=== PATIENT | female | born 1945 | race Caucasian/White ===

== ENCOUNTER → 2017-02-01 | Outpatient (CLI) | payer OTHER ==
[2016-12-18 12:39] VITALS: BP 138/65
--- NOTE | 2017-02-01 14:24 | MG ---
HISTORY: 3 month follow up status post biopsy with clip placement Right breast digital diagnostic mammography with CAD. Comparison: Multiple priors dating back to September 19, 2011 FINDINGS: CC and MLO projections of the right breast were obtained. Scattered fibroglandular tissue is seen t o be present with interval placement of a new biopsy clip within a region of fat necrosis/oil cyst f ormation with an additional stable biopsy clip also noted. No new or developing dominant suspicious architectural distortion, mass or clustered microcalcifications can be observed to suggest malignan cy. No skin thickening or nipple retraction is appreciated. No pathological lymphadenopathy can b e identified. Benign-appearing calcifications are noted. IMPRESSION: NO RADIOGRAPHIC EVIDENCE OF MALIGNANCY. 2 biopsy clips are now noted within a region of fat necrosis/oil cyst formation. Correlation with pathologic concordance is recommended. ACR CATEGORY 2 - benign findings. Return to bilateral mammographic screening in October 2017. Diagnostic CAD was utilized and reviewed. * 0 (ZERO) - ASSESSMENT INCOMPLETE; ADDITIONAL IMAGING IS NEEDED. * 1/1 (ONE) - NEGATIVE. * 2/II (TWO) - BENIGN FINDINGS. * 3/III (THREE) - PROBABLY BENIGN FINDING; SHORT INTERVAL FOLLOW-UP SUGGESTED. * 4/IV (FOUR) - SUSPICIOUS ABNORMALITY; BIOPSY SHOULD BE CONSIDERED. * 5/V (FIVE) - HIGHLY SUSPICIOUS OF MALIGNANCY; BIOPSY SHOULD BE PERFORMED. A NEGATIVE X-RAY REPORT SHOULD NOT DELAY BIOPSY IF A DOMINANT OR CLINICALLY SUSPICIOUS MASS IS PRESENT; 4 TO 8 PERCENT OF CANCERS ARE NOT IDENTIFIED BY X-RAY. A NEG ATIVE REPORT MAY REINFORCE THE CLINICAL IMPRESSION. ADENOSIS AND DENSE BREASTS MAY OBSCURE AN UNDER LYING NEOPLASM. Reported By:
== END ==
LOC: RAD 13:12
PROVIDERS: ATTEND Surgery
DX: R92.8 Other abnormal and inconclusive findings on diagnostic imaging of breast (principal); Z98.890 Other specified postprocedural states
CPT/HCPCS: 77065

== ENCOUNTER → 2018-03-04 | Outpatient (CLI) | payer OTHER ==
[2016-12-18 12:39] VITALS: BP 138/65
--- NOTE | 2018-03-04 13:27 | MRI ---
History: Left knee pain. Left knee joint effusion. Exam: Noncontrast MRI examination of the left knee joint. Technique: Multi sequence and multiplanar MRI images of the left knee joint performed at 1.5 gume wi thout IV contrast using T1, T2, and proton density sequencing for this examination. Comparison: None available. Findings: There is mild to moderate lateral patellar tracking with focal grade 1/2 median patellar ridge articu lar cartilage measuring seen on image number 8 of series 601. There is a small knee joint effusion. T here is a 5 x 2.5 cm posterior popliteal cyst observed. There is a chronic strain versus mucoid degen eration of the otherwise intact ACL. The PCL is intact. There is a subtle and nondisplaced superior r adial tear of the posterior horn of the lateral meniscus which is best seen on image number 15 of ser ies 901. No other meniscal tear is seen. There is mucoid degeneration of the posterior horn of the me dial meniscus. There is proximal patellar tendinosis and distal quadriceps peritendinitis. Prepatella r edema is noted. There is no acute fracture or stress fracture. The collateral ligaments are all int act. No acute posterior lateral corner injury is seen. There is periarticular knee joint soft tissue swelling edema noted. No other knee joint injuries or musculoskeletal abnormalities are appreciated. No intra-articular loose bodies are observed. No lytic lesion is observed. Impression: Subtle and nondisplaced 1-2 mm radial tear of the posterior horn of the lateral meniscus (superior ma rgin) with a small knee joint effusion also appreciated. Focal fraying of the lateral meniscal posterior root insertion also noted. Chronic strain versus mucoid degeneration of the otherwise intact ACL. Low-grade median patellar ridge articular cartilage fissuring with slight lateral patellar tracking w hich can be seen with chronic lateral patellar friction syndrome. Non-complex 5 x 2.3 cm posterior popliteal cyst with periarticular edema. Reported By:
== END | disposition home or self-care (01) ==
LOC: RAD 09:36
PROVIDERS: ATTEND Internal Medicine
DX: M17.12 Unilateral primary osteoarthritis, left knee (principal); S83.282A Other tear of lateral meniscus, current injury, left knee, initial encounter; X58.XXXA Exposure to other specified factors, initial encounter; M25.462 Effusion, left knee; M71.22 Synovial cyst of popliteal space [Baker], left knee; R60.0 Localized edema
CPT/HCPCS: 73721

== ENCOUNTER 2024-12-24 19:41 | Inpatient (IN) ==
[2024-12-24 20:11] LABS: BILIRUBIN,URINE NEGATIVE (NEGATIVE); BLOOD/HEMOGLOBIN,URINE 2+ (NEGATIVE); GLUCOSE, URINE NEGATIVE (NEGATIVE); KETONES,URINE 2+ (NEGATIVE); LEUKOCYTE ESTERASE ,URINE NEGATIVE (NEGATIVE); NITRITES,URINE NEGATIVE (NEGATIVE); PROTEIN,URINE 3+ (NEGATIVE); UROBILINOGEN,URINE NORMAL (NORMAL)
[2024-12-24 20:15] LABS: APPEARANCE,URINE CLEAR (CLEAR); COLOR,URINE PALE YELLOW (YELLOW)
[2024-12-24 20:21] LABS: BACTERIA,URINE TRACE /HPF (NEGATIVE); SQUAMOUS EPITHELIAL CELL,UR MODERATE /HPF (NEGATIVE)
--- NOTE | 2024-12-24 20:23 | EKG ---
Test Reason : afib, confusion Blood Pressure : */* mmHG Vent. Rate : 83 BPM Atrial Rate : 83 BPM P-R Int : 150 ms QRS Dur : 144 ms QT Int : 434 ms P-R-T Axes : 10 -35 122 degrees QTc Int : 509 ms Sinus rhythm with premature atrial complexes Left axis deviation Left bundle branch block Abnormal ECG When compared with ECG of 16-DEC-2024 14:30, No significant change was found Confirmed by Jose Alfredo Caal MD ([id number]) on 12/25/2024 6:54:32 AM Referred By: Confirmed By: Jose Alfredo Caal MD
[2024-12-24] MEDS: NS 1,000 ML IV 1,000 ML IV ONE (20:31)
[2024-12-24] MEDS: ZOFRAN INJ 4 MG VIAL IVP ONE (20:32)
[2024-12-24 20:40] LABS: BASOPHILS % (AUTO) 0.3 % (0.2-1.0); HEMATOCRIT 32.1 % (36.0-47.0); HEMOGLOBIN 11.4 g/dL (12.0-16.0); LYMPHOCYTES # (AUTO) 0.6 X10^3/uL (1.3-2.9); LYMPHOCYTES % (AUTO) 8.8 % (21.0-51.0); MEAN CORPUSCULAR HGB CONC 35.7 g/dL (33.0-35.0); MEAN CORPUSCULAR VOLUME 89.7 fL (80.0-100.0); MEAN PLATELET VOLUME 6.9 fL (7.4-11.0); MONOCYTES # (AUTO) 0.6 x10^3/uL (0.3-0.8); MONOCYTES % (AUTO) 9.2 % (0.0-13.0); NEUTROPHILS # (AUTO) 5.4 x10^3/uL (2.2-4.8); NEUTROPHILS % (AUTO) 81.7 % (42.0-75.0); PLATELET COUNT 412 X10^3/uL (150.0-450.0); RED BLOOD COUNT 3.57 X10^6/uL (3.5-5.4); RED CELL DISTRIBUTION WIDTH 12.6 % (11.6-16.5); WHITE BLOOD COUNT 6.6 X10^3/uL (3.6-10.0)
[2024-12-24 20:48] LABS: INR 1.01 (0.8-1.3)
[2024-12-24 20:55] LABS: ALANINE AMINOTRANSFERASE 19 Units/L (12-78); ALBUMIN 3.9 g/dL (3.4-5.0); ALKALINE PHOSPHATASE 61 Units/L (46-116); ASPARTATE AMINO TRANSFERASE 19 Units/L (15-37); BLOOD UREA NITROGEN 16 mg/dL (7-18); CALCIUM 9.3 mg/dL (8.5-10.1); CARBON DIOXIDE 25.2 mmol/L (21-32); CHLORIDE 89 mmol/L (98-107); COR NA(FOR HYPERGLY) 126 mmol/L (136-145); CREATINE KINASE 97 Units/L (26-192); CREATININE 1.03 mg/dL (0.55-1.02); GLUCOSE 158 mg/dL (65-99); MAGNESIUM 1.7 mg/dL (2.0-2.9); POTASSIUM 3.9 mmol/L (3.5-5.1); TOTAL PROTEIN 7.5 g/dL (6.4-8.2); eGFR NON BLACK RACES 55 (>60)
[2024-12-24 20:58] LABS: SODIUM 125 mmol/L (136-145)
[2024-12-24] MEDS ORDERED: MAGNESIUM SULFATE 50% INJ VIAL 2 G in NS 100 ML IV 100 ML IV PRN (21:27)
--- NOTE | 2024-12-24 21:33 | CT ---
EXAMINATION:ABDOMEN/PELVIS W/O CONHISTORY:feeling bad yesterday and vomitied last night. She became confused today and is still N/V. Patient is altered in triage and makes no sounds just grunts and noises to verbal commands.;COMPARISON:None.TECHNIQUE:Cont iguous noncontrast axial CT images of the abdomen and pelvis. Images reviewed in the axial imaging plane with reformatted sagittal and coronal images.The above CT scan was done with automated exposure control and the mA and kV was adjusted to obtain quality images according to patient size.FINDINGS:Details of the organs are limited since intravenous and oral contrast were not used.The liver is enlarged measuring 20 by 14 by 18 cm.Gallbladder moderately distended. No bile duct dilatation.Pancreas, spleen, adrenal glands appear intact.Kidneys normal size and position. No hydronephrosis. Nonspecific stranding of the fat surrounding both kidneys predominantly on the left side.The abdominal aorta tapers normally. Scattered arterial vascular calcifications.Details of the GI tract are limited since oral contrast was not used. Numerous colonic diverticuli. Stomach is empty. No evidence of acute appendicitis. No ascites.Urinary bladder mildly distended with urine. Uterus and adnexal regions appear intact.Severe multilevel spondylosis. Grade 2 anterolisthesis at the lumbosacral junction. Pulmonary bases are clear.IMPRESSION:No evidence of bowel obstruction. Numerous colonic diverticuli.Moderate distention of the gallbladder.Nonspecific stranding of the fat surrounding both kidneys predominantly on the left side. No hydronephrosis.THIS IS AN ELECTRONICALLY VERIFIED FINAL REPORT12/24/2024 9:29 PM - Electronically signed by Jessica Landers MD
[2024-12-24] MEDS: MAGNESIUM SULFATE 1 GRAM/100 mL PREMIX 1 G/100 ML BAG IV ONE ×2 (21:54→22:43)
[2024-12-24] MEDS: APRESOLINE INJ 20 MG VIAL IVP ONE (22:37)
[2024-12-24] MEDS: ROCEPHIN VIAL 1 GRAM IV SCH (22:37)
[2024-12-24] MEDS: ATIVAN INJ 2 MG VIAL IVP ONE (22:57)
--- NOTE | 2024-12-24 23:17 | DR.NAUSEAF ---
HPI Time Seen Time Seen by Provider: 12/24/24 20:10 Primary Care Physician Primary Care Physician: Otis Complaints Chief Complaint Doctors Comments: 79 yo F, hx of DM, HTN, CKD, brought in by EMS for vomiting, weakness and confusion. Granddaughter at bedside states she has vomited ~15x today, and has been increasingly confused throughout the day. Pt admits to epi abd pain and bilat flank pain. Denies other complaints. Chief Complaint:: Pt's family members brought patient in by wheelchair. Family states she started feeling bad yesterday and vomitied last night. She became confused today and is still N/V. Patient is altered in triage and makes no sounds just grunts and noises to verbal commands. Patient is no pain or any complaints of pain per family and patient. Self Treatment fo Chief Complaint: none COVID-19 Coronavirus risk:travel/contact w/high risk person: No Has patient experienced Coronavirus symptoms: No Source History Provided: Family Member Mode of Arrival Mode of Arrival: Wheelchair Timing Onset of Chief Complaint: 12/23/24 PMH PMH Past Medical History: Yes Past Medical History: Arthritis, Diabetes, Dyslipidemia and Hypertension Past Medical History Comment: UTIs Past Surgical History: Yes Surgical History: Ortho Surgery and Other Family History History of Family Medical Conditions: Yes Family Medical History: Diabetes Mellitus Social History Type of Tobacco Use: None Do you use any recreational Drugs:: No Lives With: Spouse Travel Risk Coronavirus risk:travel/contact w/high risk person: No Has patient experienced Coronavirus symptoms: No Infectious screening In the last 2 months have you had wt loss of >10#?: NO Have you had fever, night sweats or hemotysis?: No Have you traveled outside the country in the last 6 months?: No Isolation: Standard ROS Review of Systems Unable to Obtain Due To: Altered mental status PE Vital Signs Vitals: Vital Signs Temperature 97.9 F Pulse Rate 86 Pulse Rate 80 Pulse Rate 80 Pulse Rate 80 Pulse Rate 82 Pulse Rate 83 Pulse Rate 82 Pulse Rate 85 Pulse Rate 82 Pulse Rate 81 Pulse Rate 83 Pulse Rate 84 Pulse Rate 81 Pulse Rate 89 Pulse Rate 83 Pulse Rate 83 Pulse Rate 81 Pulse Rate 82 Pulse Rate 85 Pulse Rate 86 Pulse Rate 85 Respiratory Rate 19 Respiratory Rate 26 Respiratory Rate 26 Respiratory Rate 18 Respiratory Rate 18 Respiratory Rate 19 Respiratory Rate 23 Blood Pressure 216/88 Blood Pressure 224/125 Blood Pressure 188/85 Blood Pressure 205/152 Blood Pressure 187/77 Blood Pressure 181/103 Blood Pressure 187/96 Blood Pressure 150/69 Blood Pressure 150/69 Blood Pressure 219/97 Blood Pressure 190/90 O2 Sat by Pulse Oximetry 100 O2 Sat by Pulse Oximetry 100 O2 Sat by Pulse Oximetry 99 O2 Sat by Pulse Oximetry 96 O2 Sat by Pulse Oximetry 100 O2 Sat by Pulse Oximetry 99 O2 Sat by Pulse Oximetry 100 O2 Sat by Pulse Oximetry 100 O2 Sat by Pulse Oximetry 100 O2 Sat by Pulse Oximetry 100 O2 Sat by Pulse Oximetry 100 O2 Sat by Pulse Oximetry 100 O2 Sat by Pulse Oximetry 100 O2 Sat by Pulse Oximetry 100 O2 Sat by Pulse Oximetry 100 O2 Sat by Pulse Oximetry 100 O2 Sat by Pulse Oximetry 97 O2 Sat by Pulse Oximetry 100 O2 Sat by Pulse Oximetry 100 O2 Sat by Pulse Oximetry 99 General Limitations: No Limitations General Appearance: Alert, In No Apparent Distress and Other (Answers some questions appropriately, seems confused on exam) Head Head Exam: Normal Inspection Eyes Eye exam: Normal Appearance ENT ENT Exam: Normal Exam Neck Neck Exam: Normal Inspection Chest Chest Inspection: Normal Inspection Respiratory Respiratory Exam: Normal Lung Sounds Bilat Respiratory Exam: Bilateral: Clear to Auscultation Cardiovascular Cardiovascular Exam: Regular Rate and Normal Rhythm Abdominal Exam Abdominal Exam: Normal Inspection, Normal Bowel Sounds and Soft Rectal Rectal Exam: Deferred External Exam: Female: Deferred : Speculum Exam (Female): Deferred : Bimanual Exam (female): Deferred Extremities Extremities Exam: Normal Inspection Back Back Exam: Normal Inspection Neurologic Neurological Exam: Alert and Oriented X3 Psychiatric Psychiatric Exam: Normal Affect and Normal Mood Skin Skin Exam: Warm, Dry, Intact and Normal Color ROR Labs Reviewed Laboratory Results Reviewed?: Yes 12/24/24 20:30 12/24/24 20:30 Laboratory: WBC 6.6 X10^3/uL (3.6-10.0) 12/24/24 20:30 RBC 3.57 X10^6/uL (3.5-5.4) 12/24/24 20:30 Hgb 11.4 g/dL (12.0-16.0) L 12/24/24 20:30 Hct 32.1 % (36.0-47.0) L 12/24/24 20:30 MCV 89.7 fL (80.0-100.0) 12/24/24 20:30 MCH 32.0 pg (27.0-34.0) 12/24/24 20:30 MCHC 35.7 g/dL (33.0-35.0) H 12/24/24 20:30 RDW 12.6 % (11.6-16.5) 12/24/24 20:30 Plt Count 412 X10^3/uL (150.0-450.0) 12/24/24 20: MPV 6.9 fL (7.4-11.0) L 12/24/24 20:30 Neut % (Auto) 81.7 % (42.0-75.0) H 12/24/24 20:30 Lymph % (Auto) 8.8 % (21.0-51.0) L 12/24/24 20:30 [place] % (Auto) 9.2 % (0.0-13.0) 12/24/24 20: Eos % (Auto) 0.0 % (0.9-2.9) L 12/24/24 20:30 Baso % (Auto) 0.3 % (0.2-1.0) 12/24/24 20:30 Neut # (Auto) 5.4 x10^3/uL (2.2-4.8) H 12/24/24 20:30 Lymph # (Auto) 0.6 X10^3/uL (1.3-2.9) L 12/24/24 20:30 [place] # (Auto) 0.6 x10^3/uL (0.3-0.8) 12/24/24 20:30 Eos # (Auto) 0.0 x10^3/uL (0.0-0.2) 12/24/24 20:30 Baso # (Auto) 0.0 X10^3/uL (0.0-0.1) 12/24/24 20:30 Absolute Nucleated RBC 0.0 /100WBC 12/24/24 20:30 PT 13.1 SECONDS (11.8-14.3) 12/24/24 20:20 INR Target Range - 12/24/24 20:20 INR 1.01 (0.8-1.3) 12/24/24 20:20 APTT 21.4 SECONDS (22.9-36.5) L 12/24/24 20:20 PTT Comment - 12/24/24 20:20 Sodium 125 mmol/L (136-145) L* 12/24/24 20:30 Corrected Sodium 126 mmol/L (136-145) L 12/24/24 20:30 Potassium 3.9 mmol/L (3.5-5.1) 12/24/24 20:30 Chloride 89 mmol/L (98-107) L 12/24/24 20:30 Carbon Dioxide 25.2 mmol/L (21-32) 12/24/24 20:30 BUN 16 mg/dL (7-18) 12/24/24 20:30 Creatinine 1.03 mg/dL (0.55-1.02) H 12/24/24 20:30 Est GFR (MDRD) Af Amer > 60 (>60) 12/24/24 20:30 Est GFR (MDRD) Non-Af 55 (>60) L 12/24/24 20:30 Glucose 158 mg/dL (65-99) H 12/24/24 20:30 Calcium 9.3 mg/dL (8.5-10.1) 12/24/24 20:30 Corrected Calcium TNP 12/24/24 20:30 Magnesium 1.7 mg/dL (2.0-2.9) L 12/24/24 20:30 Total Bilirubin 0.70 mg/dL (0.2-1.0) 12/24/24 20:30 AST 19 Units/L (15-37) 12/24/24 20:30 ALT 19 Units/L (12-78) 12/24/24 20:30 Alkaline Phosphatase 61 Units/L (46-116) 12/24/24 20:30 Creatine Kinase 97 Units/L (26-192) 12/24/24 20:30 Troponin I High Sens 42.8 ng/L (4.0-60.0) 12/24/24 20:30 Total Protein 7.5 g/dL (6.4-8.2) 12/24/24 20:30 Albumin 3.9 g/dL (3.4-5.0) 12/24/24 20:30 Globulin 3.6 g/dL (2.5-4.5) 12/24/24 20:30 Albumin/Globulin Ratio 1.1 Ratio (1.1-2.1) 12/24/24 20:30 Specimen Type Catherized urine 12/24/24 20:05 Urine Color Pale yellow (YELLOW) 12/24/24 20:05 Urine Appearance Clear (CLEAR) 12/24/24 20:05 Urine pH 7.0 (5.0 - 8.0) 12/24/24 20:05 Ur Specific [place] 1.015 (1.000-1.030) 12/24/24 20:05 Urine Protein 3+ (NEGATIVE) 12/24/24 20:05 Urine Glucose (UA) Negative (NEGATIVE) 12/24/24 20: Urine Ketones 2+ (NEGATIVE) 12/24/24 20: Urine Blood 2+ (NEGATIVE) 12/24/24 20: Urine Nitrite Negative (NEGATIVE) 12/24/24 20: Urine Bilirubin Negative (NEGATIVE) 12/24/24 20:05 Urine Urobilinogen Normal (NORMAL) 12/24/24 20:05 Ur Leukocyte Esterase Negative (NEGATIVE) 12/24/24 20:05 Urine RBC 5-10 /HPF (0-3) A 12/24/24 20:05 Urine WBC 0-2 /HPF (0-5) 12/24/24 20:05 Ur Squamous Epith Cells Moderate /HPF (NEGATIVE) 12/24/24 20:05 Amorphous Sediment 2+ /HPF (NEGATIVE) 12/24/24 20:05 Urine Bacteria Trace /HPF (NEGATIVE) 12/24/24 20:05 Ur Culture Indicated? No/not indicated 12/24/24 20:05 Other Results Comments: CT shows perinephric fat stranding bilat, consistent with pyelonephritis. Urine shows no evidence of UTI. Pt's AMS combined with these findings seems consistent with aseptic pyelonephritis. Opioid Opioid Risk Tool Age (Antolin box if 16-45): No History of Preadolescent Sexual Abuse: No Total: 0 Total Score Risk Category: Low Risk Copyright: Paul LISA predicting aberrant behaviors Discharge Plan Diagnosis Discharge Problem: Acute hyponatremia, Vomiting, Acute pyelonephritis, Acute confusion Discharge Plan Patient Disposition: 01 HOME, SELF-CARE Condition: Stable Orders to Discharge Patient Discharge Orders: Transfer (Routine); Ordered 12/24/24 Ordered By: Jet Matt
--- NOTE | 2024-12-25 00:11 | EKG ---
Test Reason : hyponatremia Blood Pressure : */* mmHG Vent. Rate : 89 BPM Atrial Rate : 89 BPM P-R Int : 168 ms QRS Dur : 144 ms QT Int : 434 ms P-R-T Axes : 11 -48 132 degrees QTc Int : 528 ms Sinus rhythm with premature atrial complexes Left axis deviation Left bundle branch block Abnormal ECG When compared with ECG of 24-DEC-2024 20:20, (Unconfirmed) No significant change was found Confirmed by Jose Alfredo Caal MD ([id number]) on 12/25/2024 6:54:55 AM Referred By: Confirmed By: Jose Alfredo Caal MD
[2024-12-25] MEDS: ATIVAN INJ 2 MG VIAL ONE (00:13)
[2024-12-25 00:14] VITALS: BMI 28.1
[2024-12-25] MEDS: NS 1,000 ML IV 1,000 ML IV SCH (00:23)
--- NOTE | 2024-12-25 01:21 | RAD ---
EXAM:CHEST, 1 VIEWHISTORY:Shortness of Breath;COMPARISON:12/16/2024FINDINGS:The trachea is midline. The cardiac silhouette is unremarkable . The lungs are clear without focal infiltrate or effusion. The bony thorax is unremarkable.IMPRESSION:No acute cardiopulmonary disease.THIS IS AN ELECTRONICALLY VERIFIED FINAL REPORT12/25/2024 1:18 AM - Electronically signed by Sachin Fagan MD
[2024-12-25] MEDS: HALDOL INJ IM PRN (01:54)
[2024-12-25] MEDS: NEURONTIN CAP 300 MG PO SCH (05:46)
--- NOTE | 2024-12-25 06:02 | EKG ---
Test Reason : hyponatremia Blood Pressure : */* mmHG Vent. Rate : 66 BPM Atrial Rate : 66 BPM P-R Int : 172 ms QRS Dur : 152 ms QT Int : 458 ms P-R-T Axes : 70 -53 126 degrees QTc Int : 480 ms Sinus rhythm with premature atrial complexes Left axis deviation Left bundle branch block Abnormal ECG When compared with ECG of 24-DEC-2024 23:48, (Unconfirmed) QT has shortened Confirmed by Jose Alfredo Caal MD ([id number]) on 12/25/2024 6:56:01 AM Referred By: Confirmed By: Jose Alfredo Caal MD
[2024-12-25 06:23] LABS: BASOPHILS % (AUTO) 0.4 % (0.2-1.0); EOSINOPHILS % (AUTO) 0.1 % (0.9-2.9); HEMATOCRIT 28.9 % (36.0-47.0); HEMOGLOBIN 10.3 g/dL (12.0-16.0); LYMPHOCYTES # (AUTO) 0.9 X10^3/uL (1.3-2.9); LYMPHOCYTES % (AUTO) 11.5 % (21.0-51.0); MEAN CORPUSCULAR HEMOGLOBIN 32.2 pg (27.0-34.0); MEAN CORPUSCULAR HGB CONC 35.6 g/dL (33.0-35.0); MEAN CORPUSCULAR VOLUME 90.3 fL (80.0-100.0); MEAN PLATELET VOLUME 7.1 fL (7.4-11.0); MONOCYTES # (AUTO) 1.1 x10^3/uL (0.3-0.8); MONOCYTES % (AUTO) 12.9 % (0.0-13.0); NEUTROPHILS # (AUTO) 6.2 x10^3/uL (2.2-4.8); NEUTROPHILS % (AUTO) 75.1 % (42.0-75.0); PLATELET COUNT 368 X10^3/uL (150.0-450.0); RED CELL DISTRIBUTION WIDTH 12.9 % (11.6-16.5); WHITE BLOOD COUNT 8.3 X10^3/uL (3.6-10.0)
[2024-12-25 06:26] LABS: INR 1.07 (0.8-1.3)
[2024-12-25 06:53] LABS: ALANINE AMINOTRANSFERASE 17 Units/L (12-78); ALBUMIN 3.2 g/dL (3.4-5.0); ALKALINE PHOSPHATASE 50 Units/L (46-116); ASPARTATE AMINO TRANSFERASE 19 Units/L (15-37); BLOOD UREA NITROGEN 15 mg/dL (7-18); CALCIUM 8.4 mg/dL (8.5-10.1); CARBON DIOXIDE 26.6 mmol/L (21-32); CHLORIDE 93 mmol/L (98-107); CREATININE 0.97 mg/dL (0.55-1.02); GLUCOSE 108 mg/dL (65-99); MAGNESIUM 2.3 mg/dL (2.0-2.9); POTASSIUM 3.4 mmol/L (3.5-5.1); SODIUM 128 mmol/L (136-145); TOTAL PROTEIN 6.3 g/dL (6.4-8.2); eGFR NON BLACK RACES 59 (>60)
[2024-12-25] MEDS: SEMAGLUTIDE 3 MG PO SCH (09:41)
[2024-12-25] MEDS ORDERED: GLUCOPHAGE ONE (10:00)
[2024-12-25] MEDS: JANUVIA PO SCH (10:05)
[2024-12-25] MEDS: SINGULAIR TAB 10 MG PO SCH (10:05)
[2024-12-25] MEDS: XARELTO PO SCH (10:06)
[2024-12-25] MEDS: FERROUS GLUCONATE PO SCH (10:07)
[2024-12-25] MEDS: PriLOSEC PO SCH (10:07)
[2024-12-25] MEDS: DIOVAN TAB 160 MG PO SCH (10:07)
[2024-12-25] MEDS: GLUCOPHAGE PO SCH (10:07)
[2024-12-25] MEDS: NS 100 ML IV 100 ML ONE (10:08)
--- NOTE | 2024-12-25 13:46 | EKG ---
Test Reason : hyponatremia Blood Pressure : */* mmHG Vent. Rate : 80 BPM Atrial Rate : 80 BPM P-R Int : 148 ms QRS Dur : 140 ms QT Int : 444 ms P-R-T Axes : * -42 133 degrees QTc Int : 512 ms Normal sinus rhythm Left axis deviation Left bundle branch block Abnormal ECG When compared with ECG of 25-DEC-2024 05:39, premature atrial complexes are no longer present Confirmed by Jose Alfredo Caal MD ([id number]) on 12/25/2024 1:51:57 PM Referred By: Confirmed By: Jose Alfredo Caal MD
--- NOTE | 2024-12-25 20:09 | DR.H&P ---
H&P History & Physical for Day of: H&P Date: 12/25/24 Chief Complaint Chief Complaint: N/V, weakness, AMS History of Present Illness History of Present Illness: Patient is a 79y/o female with a PMH of DM, HTN, HLD, OA presented with increased weakness, N/V and AMS. Er work up showed hyponatremia Na 125, UA (-) CTAP showed perinephric stranding b/l. CXR negative. She was started on fluids and IV antibiotics. She is feeling slightly better today. Na is 128. Denies chest pain or SOB. Labs/imaging reviewed: -WBC 8.3 Hgb 10.3 Na 128 K 3.4 Cr 0.97 Trop 42-81-82 -CXR and CTAP reviewed Plan: continue hydration, monitor Na. Advance diet as tolerated. Replace electrolytes as per protocol. Continue empiric antibiotics. Continue anti- emetics. Follow pending cultures. Resume home medications. Monitor AM labs/imaging. Past Medical History Past Medical History: Arthritis, Diabetes, Dyslipidemia and Hypertension Additional Medical History: Cataracts, Glaucoma, Vision Deficit with Corrective Lenses, Conduction disorder of heart, heart murmur, sleep apnea, diarrhea, chronic back pain Past Surgical History Surgical History: Ortho Surgery Additional Surgical History: 2 Foot surgeries, Breast Reduction Family History Family Medical History: Diabetes Mellitus Social History Type of Tobacco Use: None Does any household member use tobacco: No Alcohol Use: None Drug Use: None Medications Home Medications: Home Medications Medication Instructions Recorded Confirmed Type latanoprost 0.005 % eye drops 1 drp ophthalmic (eye) QPM 08/16/23 12/25/24 History nystatin 100,000 unit/gram topical 1 applic topical BID 08/16/23 10/04/23 History cream omeprazole 40 mg capsule,delayed 40 mg PO QDAY acid reflux 08/16/23 10/04/23 History release tramadol 50 mg tablet 50 mg PO QID PRN pain 08/16/23 10/04/23 History aspirin 325 mg tablet 325 mg PO DAILY 10/04/23 10/04/23 History atorvastatin 20 mg tablet 20 mg PO QPM 10/04/23 12/25/24 History cholecalciferol (vitamin D3) 125 250 mcg PO QDAY 10/04/23 12/25/24 History mcg (5,000 unit) tablet (Vitamin D3) dapagliflozin propanediol 10 mg 10 mg PO DAILY 10/04/23 10/04/23 History tablet (Farxiga) ferrous sulfate 324 mg (65 mg 324 mg PO BID 10/04/23 12/25/24 History iron) tablet,delayed release gabapentin 300 mg capsule 300 mg PO TID 10/04/23 12/25/24 History guaifenesin 600 mg tablet, 600 mg PO BID 10/04/23 10/04/23 History extended release 12 hr meclizine 25 mg tablet 25 mg PO QPM dizziness 10/04/23 10/04/23 History metformin 500 mg tablet 500 mg PO BID 10/04/23 12/25/24 History montelukast 10 mg tablet 10 mg PO QDAY 10/04/23 10/04/23 History naproxen 500 mg tablet 500 mg PO BID 10/04/23 10/04/23 History semaglutide 3 mg tablet (Rybelsus) 3 mg PO DAILY 10/04/23 10/04/23 History sitagliptin phosphate 25 mg tablet 25 mg PO QDAY 10/04/23 10/04/23 History (Ananya) valsartan 320 mg tablet 160 mg PO QDAY 12/25/24 12/25/24 History Allergies Allergies Allergy/AdvReac Type Severity Reaction Status Date / Time No Known Allergies Allergy Verified 12/16/24 14:32 Labs 12/25/24 06:07 12/25/24 06:07 Labs: Laboratory WBC 8.3 X10^3/uL (3.6-10.0) 12/25/24 06:07 RBC 3.20 X10^6/uL (3.5-5.4) L 12/25/24 06:07 Hgb 10.3 g/dL (12.0-16.0) L 12/25/24 06:07 Hct 28.9 % (36.0-47.0) L 12/25/24 06:07 MCV 90.3 fL (80.0-100.0) 12/25/24 06:07 MCH 32.2 pg (27.0-34.0) 12/25/24 06:07 MCHC 35.6 g/dL (33.0-35.0) H 12/25/24 06:07 RDW 12.9 % (11.6-16.5) 12/25/24 06:07 Plt Count 368 X10^3/uL (150.0-450.0) 12/25/24 06:07 MPV 7.1 fL (7.4-11.0) L 12/25/24 06:07 Neut % (Auto) 75.1 % (42.0-75.0) H 12/25/24 06:07 Lymph % (Auto) 11.5 % (21.0-51.0) L 12/25/24 06:07 [place] % (Auto) 12.9 % (0.0-13.0) 12/25/24 06:07 Eos % (Auto) 0.1 % (0.9-2.9) L 12/25/24 06:07 Baso % (Auto) 0.4 % (0.2-1.0) 12/25/24 06:07 Neut # (Auto) 6.2 x10^3/uL (2.2-4.8) H 12/25/24 06:07 Lymph # (Auto) 0.9 X10^3/uL (1.3-2.9) L 12/25/24 06:07 [place] # (Auto) 1.1 x10^3/uL (0.3-0.8) H 12/25/24 06:07 Eos # (Auto) 0.0 x10^3/uL (0.0-0.2) 12/25/24 06:07 Baso # (Auto) 0.0 X10^3/uL (0.0-0.1) 12/25/24 06:07 Absolute Nucleated RBC 0.1 /100WBC 12/25/24 06:07 PT 13.7 SECONDS (11.8-14.3) 12/25/24 06:07 INR Target Range - 12/25/24 06:07 INR 1.07 (0.8-1.3) 12/25/24 06:07 APTT 23.9 SECONDS (22.9-36.5) 12/25/24 06:07 PTT Comment - 12/25/24 06:07 Sodium 128 mmol/L (136-145) L 12/25/24 06:07 Corrected Sodium TNP 12/25/24 06:07 Potassium 3.4 mmol/L (3.5-5.1) L 12/25/24 06:07 Chloride 93 mmol/L (98-107) L 12/25/24 06:07 Carbon Dioxide 26.6 mmol/L (21-32) 12/25/24 06:07 BUN 15 mg/dL (7-18) 12/25/24 06:07 Creatinine 0.97 mg/dL (0.55-1.02) 12/25/24 06:07 Est GFR (MDRD) Af Amer > 60 (>60) 12/25/24 06:07 Est GFR (MDRD) Non-Af 59 (>60) 12/25/24 06:07 Glucose 108 mg/dL (65-99) H 12/25/24 06:07 POC Glucose (mg/dL) 88 mg/dL (65-99) 12/25/24 19:49 Calcium 8.4 mg/dL (8.5-10.1) L 12/25/24 06:07 Corrected Calcium 9.0 mg/dL (8.5-10.1) 12/25/24 06:07 Magnesium 2.3 mg/dL (2.0-2.9) 12/25/24 06:07 Total Bilirubin 0.50 mg/dL (0.2-1.0) 12/25/24 06:07 AST 19 Units/L (15-37) 12/25/24 06:07 ALT 17 Units/L (12-78) 12/25/24 06:07 Alkaline Phosphatase 50 Units/L (46-116) 12/25/24 06:07 Creatine Kinase 280 Units/L (26-192) H 12/25/24 11:33 Troponin I High Sens 68.9 ng/L (4.0-60.0) H* 12/25/24 11:33 Total Protein 6.3 g/dL (6.4-8.2) L 12/25/24 06:07 Albumin 3.2 g/dL (3.4-5.0) L 12/25/24 06:07 Globulin 3.1 g/dL (2.5-4.5) 12/25/24 06:07 Albumin/Globulin Ratio 1.0 Ratio (1.1-2.1) L 12/25/24 06:07 Specimen Type Catherized urine 12/24/24 20:05 Urine Color Pale yellow (YELLOW) 12/24/24 20:05 Urine Appearance Clear (CLEAR) 12/24/24 20:05 Urine pH 7.0 (5.0 - 8.0) 12/24/24 20:05 Ur Specific [place] 1.015 (1.000-1.030) 12/24/24 20:05 Urine Protein 3+ (NEGATIVE) 12/24/24 20:05 Urine Glucose (UA) Negative (NEGATIVE) 12/24/24 20:05 Urine Ketones 2+ (NEGATIVE) 12/24/24 20:05 Urine Blood 2+ (NEGATIVE) 12/24/24 20:05 Urine Nitrite Negative (NEGATIVE) 12/24/24 20:05 Urine Bilirubin Negative (NEGATIVE) 12/24/24 20:05 Urine Urobilinogen Normal (NORMAL) 12/24/24 20:05 Ur Leukocyte Esterase Negative (NEGATIVE) 12/24/24 20:05 Urine RBC 5-10 /HPF (0-3) A 12/24/24 20:05 Urine WBC 0-2 /HPF (0-5) 12/24/24 20:05 Ur Squamous Epith Cells Moderate /HPF (NEGATIVE) 12/24/24 20:05 Amorphous Sediment 2+ /HPF (NEGATIVE) 12/24/24 20:05 Urine Bacteria Trace /HPF (NEGATIVE) 12/24/24 20:05 Ur Culture Indicated? No/not indicated 12/24/24 20:05 Review of Systems Constitutional: No Symptoms Reported Eyes: No Symptoms Reported ENT: No Symptoms Reported Respiratory: No Symptoms Reported Cardiovascular: No Symptoms Reported Gastrointestinal: No Symptoms Reported Genitourinary: No Symptoms Reported Musculoskeletal: No Symptoms Reported Skin: No Symptoms Reported Neurological: No Symptoms Reported Physical Exam Vital Signs: Vital Signs Temperature 97.9 F Pulse Rate 84 Pulse Rate 86 Pulse Rate 76 Pulse Rate 76 Blood Pressure 150/64 O2 Sat by Pulse Oximetry 100 O2 Sat by Pulse Oximetry 99 O2 Sat by Pulse Oximetry 100 O2 Sat by Pulse Oximetry 100 Oriented: Normal Eyes: Normal Ear: Normal Nose: Normal Throat: Normal Respiratory: Clear Throughout Cardiovascular: Normal : Normal Auscultation: Bowel Sounds: Normal Palpation: Normal Tenderness: Normal Skin: Decreased Turgur Musculoskeletal: Normal Psychiatric: Normal Mood Description: Calm and Appropriate Affect: Normal Speech Pattern: Clear and Appropriate Assessment/Plan (1) Altered mental status: Qualifiers: Altered mental status type: transient alteration of awareness Qualified Code(s): R40.4 - Transient alteration of awareness Status: Acute (2) Generalized weakness: Status: Acute (3) Hyponatremia: Status: Acute (4) Pyelonephritis: Status: Acute (5) Hypomagnesemia: Status: Acute Review H&P Reviewed: Yes Patient was examined?: Yes
[2024-12-25] MEDS: LIPITOR TAB 20 MG PO SCH (20:39)
[2024-12-25] MEDS: XALATAN OP SCH (20:49)
[2024-12-25] MEDS: ULTRAM PO PRN (23:54)
[2024-12-26 05:25] LABS: BASOPHILS % (AUTO) 0.5 % (0.2-1.0); EOSINOPHILS # (AUTO) 0.1 x10^3/uL (0.0-0.2); EOSINOPHILS % (AUTO) 0.7 % (0.9-2.9); HEMATOCRIT 31.3 % (36.0-47.0); HEMOGLOBIN 10.9 g/dL (12.0-16.0); LYMPHOCYTES # (AUTO) 1.6 X10^3/uL (1.3-2.9); LYMPHOCYTES % (AUTO) 18.9 % (21.0-51.0); MEAN CORPUSCULAR HEMOGLOBIN 31.8 pg (27.0-34.0); MEAN CORPUSCULAR HGB CONC 34.6 g/dL (33.0-35.0); MEAN CORPUSCULAR VOLUME 91.7 fL (80.0-100.0); MEAN PLATELET VOLUME 7.5 fL (7.4-11.0); MONOCYTES % (AUTO) 11.7 % (0.0-13.0); NEUTROPHILS # (AUTO) 5.8 x10^3/uL (2.2-4.8); NEUTROPHILS % (AUTO) 68.2 % (42.0-75.0); PLATELET COUNT 406 X10^3/uL (150.0-450.0); RED BLOOD COUNT 3.42 X10^6/uL (3.5-5.4); RED CELL DISTRIBUTION WIDTH 13.4 % (11.6-16.5); WHITE BLOOD COUNT 8.5 X10^3/uL (3.6-10.0)
[2024-12-26 05:35] LABS: ALANINE AMINOTRANSFERASE 18 Units/L (12-78); ALBUMIN 3.5 g/dL (3.4-5.0); ALKALINE PHOSPHATASE 54 Units/L (46-116); ASPARTATE AMINO TRANSFERASE 27 Units/L (15-37); BLOOD UREA NITROGEN 17 mg/dL (7-18); CALCIUM 8.6 mg/dL (8.5-10.1); CARBON DIOXIDE 24.1 mmol/L (21-32); CHLORIDE 96 mmol/L (98-107); CREATININE 1.38 mg/dL (0.55-1.02); GLUCOSE 89 mg/dL (65-99); MAGNESIUM 2.1 mg/dL (2.0-2.9); POTASSIUM 3.5 mmol/L (3.5-5.1); SODIUM 131 mmol/L (136-145); TOTAL PROTEIN 6.6 g/dL (6.4-8.2); eGFR NON BLACK RACES 39 (>60)
[2024-12-26] MEDS ORDERED: CONSULT PHARMACY - POTASSIUM & MAGNESIUM XX SCH (06:00)
[2024-12-26] MEDS: K-DUR TAB 20 MEQ PO SCH (08:35)
[2024-12-26] MEDS: GLUCOPHAGE ONE ×3 (08:54→22:56)
[2024-12-26] MEDS: NS 100 ML IV 100 ML ONE (08:54)
--- NOTE | 2024-12-26 11:49 | PCM.PROG ---
Progress Note Progress Note for Day of Date of Exam: 12/26/24 Subjective Subjective: Patient is a 79y/o female with a PMH of DM, HTN, HLD, OA admitted for aseptic pyelonephritis and hyponatremia. This morning she is sitting up in bed. No acute events overnight. She does report feeling better. She is currently receiving IV fluids and IV antibiotics. Labs/imaging reviewed: -WBC 8.5, hemoglobin 10.9, platelets 406, sodium 131, potassium 3.5, creatinine 1.38, glucose 89 -CXR and CTAP reviewed -Urine culture ordered Plan: continue hydration, hyponatremia has improved, monitor Na. Advance diet as tolerated. Replace electrolytes as per protocol. Continue empiric antibiotics. Continue anti-emetics. Follow pending cultures. Home medications have been re sumed. Order physical therapy. Otherwise continue with current treatment plan. Monitor AM labs/imaging. Past Medical Family Social History Allergies: Allergies No Known Allergies Allergy (Verified 12/16/24 14:32) Review of Systems ROS changes noted: see HPI Vital Signs and I&O's Vital Signs: Vital Signs Temperature 97.6 F Temperature 99.7 F Pulse Rate 84 Pulse Rate 76 Pulse Rate 74 Pulse Rate 65 Pulse Rate 66 Pulse Rate 66 Pulse Rate 63 Respiratory Rate 18 Respiratory Rate 14 Respiratory Rate 20 Blood Pressure 116/62 Blood Pressure 108/68 Blood Pressure 119/56 Blood Pressure 119/56 Blood Pressure 133/62 O2 Sat by Pulse Oximetry 100 O2 Sat by Pulse Oximetry 95 O2 Sat by Pulse Oximetry 100 O2 Sat by Pulse Oximetry 97 O2 Sat by Pulse Oximetry 96 O2 Sat by Pulse Oximetry 98 O2 Sat by Pulse Oximetry 96 Intake and Output: Intake & Output 12/23/24 12/24/24 12/25/24 12/26/24 23:59 23:59 23:59 23:59 Intake Total 2136 408 / 408 Balance 2136 408 / 408 Physical Exam Oriented: Normal Eyes: Normal Ear: Normal Nose: Normal Throat: Normal Respiratory: Normal Cardiovascular: Normal : Normal Auscultation: Bowel Sounds: Normal Tenderness: Normal Skin: Decreased [place] Musculoskeletal: Normal Psychiatric: Normal Mood Description: Calm and Appropriate Affect: Normal Speech Pattern: Clear Laboratory and Diagnostics 12/26/24 04:54 12/26/24 04:54 Labs: 12/24/24 20:30 Blood Blood Culture - Preliminary 12/24/24 20:20 Blood Blood Culture - Preliminary Laboratory WBC 8.5 X10^3/uL (3.6-10.0) 12/26/24 04:54 RBC 3.42 X10^6/uL (3.5-5.4) L 12/26/24 04:54 Hgb 10.9 g/dL (12.0-16.0) L 12/26/24 04:54 Hct 31.3 % (36.0-47.0) L 12/26/24 04:54 MCV 91.7 fL (80.0-100.0) 12/26/24 04:54 MCH 31.8 pg (27.0-34.0) 12/26/24 04:54 MCHC 34.6 g/dL (33.0-35.0) 12/26/24 04:54 RDW 13.4 % (11.6-16.5) 12/26/24 04:54 Plt Count 406 X10^3/uL (150.0-450.0) 12/26/24 04:54 MPV 7.5 fL (7.4-11.0) 12/26/24 04:54 Neut % (Auto) 68.2 % (42.0-75.0) 12/26/24 04:54 Lymph % (Auto) 18.9 % (21.0-51.0) L 12/26/24 04:54 [place] % (Auto) 11.7 % (0.0-13.0) 12/26/24 04:54 Eos % (Auto) 0.7 % (0.9-2.9) L 12/26/24 04:54 Baso % (Auto) 0.5 % (0.2-1.0) 12/26/24 04:54 Neut # (Auto) 5.8 x10^3/uL (2.2-4.8) H 12/26/24 04:54 Lymph # (Auto) 1.6 X10^3/uL (1.3-2.9) 12/26/24 04:54 [place] # (Auto) 1.0 x10^3/uL (0.3-0.8) H 12/26/24 04:54 Eos # (Auto) 0.1 x10^3/uL (0.0-0.2) 12/26/24 04:54 Baso # (Auto) 0.0 X10^3/uL (0.0-0.1) 12/26/24 04:54 Absolute Nucleated RBC 0.0 /100WBC 12/26/24 04:54 PT 13.7 SECONDS (11.8-14.3) 12/25/24 06:07 INR Target Range - 12/25/24 06:07 INR 1.07 (0.8-1.3) 12/25/24 06:07 APTT 23.9 SECONDS (22.9-36.5) 12/25/24 06:07 PTT Comment - 12/25/24 06:07 Sodium 131 mmol/L (136-145) L 12/26/24 04:54 Corrected Sodium TNP 12/26/24 04:54 Potassium 3.5 mmol/L (3.5-5.1) 12/26/24 04:54 Chloride 96 mmol/L (98-107) L 12/26/24 04:54 Carbon Dioxide 24.1 mmol/L (21-32) 12/26/24 04:54 BUN 17 mg/dL (7-18) 12/26/24 04:54 Creatinine 1.38 mg/dL (0.55-1.02) H 12/26/24 04:54 Est GFR (MDRD) Af Amer 47 (>60) L 12/26/24 04:54 Est GFR (MDRD) Non-Af 39 (>60) L 12/26/24 04:54 Glucose 89 mg/dL (65-99) 12/26/24 04:54 POC Glucose (mg/dL) 99 mg/dL (65-99) 12/26/24 11:18 Calcium 8.6 mg/dL (8.5-10.1) 12/26/24 04:54 Corrected Calcium TNP 12/26/24 04:54 Magnesium 2.1 mg/dL (2.0-2.9) 12/26/24 04:54 Total Bilirubin 0.40 mg/dL (0.2-1.0) 12/26/24 04:54 AST 27 Units/L (15-37) 12/26/24 04:54 ALT 18 Units/L (12-78) 12/26/24 04:54 Alkaline Phosphatase 54 Units/L (46-116) 12/26/24 04:54 Creatine Kinase 337 Units/L (26-192) H 12/25/24 23:43 Troponin I High Sens 68.9 ng/L (4.0-60.0) H* 12/25/24 11:33 Total Protein 6.6 g/dL (6.4-8.2) 12/26/24 04:54 Albumin 3.5 g/dL (3.4-5.0) 12/26/24 04:54 Globulin 3.1 g/dL (2.5-4.5) 12/26/24 04:54 Albumin/Globulin Ratio 1.1 Ratio (1.1-2.1) 12/26/24 04:54 Specimen Type Catherized urine 12/24/24 20:05 Urine Color Pale yellow (YELLOW) 12/24/24 20:05 Urine Appearance Clear (CLEAR) 12/24/24 20:05 Urine pH 7.0 (5.0 - 8.0) 12/24/24 20:05 Ur Specific [place] 1.015 (1.000-1.030) 12/24/24 20:05 Urine Protein 3+ (NEGATIVE) 12/24/24 20:05 Urine Glucose (UA) Negative (NEGATIVE) 12/24/24 20:05 Urine Ketones 2+ (NEGATIVE) 12/24/24 20:05 Urine Blood 2+ (NEGATIVE) 12/24/24 20:05 Urine Nitrite Negative (NEGATIVE) 12/24/24 20:05 Urine Bilirubin Negative (NEGATIVE) 12/24/24 20:05 Urine Urobilinogen Normal (NORMAL) 12/24/24 20:05 Ur Leukocyte Esterase Negative (NEGATIVE) 12/24/24 20:05 Urine RBC 5-10 /HPF (0-3) A 12/24/24 20:05 Urine WBC 0-2 /HPF (0-5) 12/24/24 20:05 Ur Squamous Epith Cells Moderate /HPF (NEGATIVE) 12/24/24 20:05 Amorphous Sediment 2+ /HPF (NEGATIVE) 12/24/24 20:05 Urine Bacteria Trace /HPF (NEGATIVE) 12/24/24 20:05 Ur Culture Indicated? No/not indicated 12/24/24 20:05 Plan (1) Altered mental status: Status: Acute Qualifiers: Altered mental status type: transient alteration of awareness Qualified Code(s): R40.4 - Transient alteration of awareness (2) Generalized weakness: Status: Acute (3) Hyponatremia: Status: Acute (4) Pyelonephritis: Status: Acute (5) Hypomagnesemia: Status: Acute
[2024-12-26 22:56] VITALS: RESP 20
[2024-12-27 07:17] LABS: BASOPHILS # (AUTO) 0.2 X10^3/uL (0.0-0.1); BASOPHILS % (AUTO) 2.2 % (0.2-1.0); EOSINOPHILS # (AUTO) 0.2 x10^3/uL (0.0-0.2); EOSINOPHILS % (AUTO) 2.1 % (0.9-2.9); HEMATOCRIT 31.8 % (36.0-47.0); HEMOGLOBIN 11.1 g/dL (12.0-16.0); LYMPHOCYTES % (AUTO) 12.7 % (21.0-51.0); MEAN CORPUSCULAR VOLUME 91.2 fL (80.0-100.0); MEAN PLATELET VOLUME 7.9 fL (7.4-11.0); MONOCYTES # (AUTO) 0.9 x10^3/uL (0.3-0.8); MONOCYTES % (AUTO) 10.6 % (0.0-13.0); NEUTROPHILS % (AUTO) 72.4 % (42.0-75.0); PLATELET COUNT 395 X10^3/uL (150.0-450.0); RED BLOOD COUNT 3.48 X10^6/uL (3.5-5.4); RED CELL DISTRIBUTION WIDTH 13.3 % (11.6-16.5); WHITE BLOOD COUNT 8.3 X10^3/uL (3.6-10.0)
[2024-12-27 07:33] LABS: ALANINE AMINOTRANSFERASE 19 Units/L (12-78); ALBUMIN 3.6 g/dL (3.4-5.0); ALKALINE PHOSPHATASE 59 Units/L (46-116); ASPARTATE AMINO TRANSFERASE 25 Units/L (15-37); BLOOD UREA NITROGEN 17 mg/dL (7-18); CALCIUM 8.9 mg/dL (8.5-10.1); CARBON DIOXIDE 23.1 mmol/L (21-32); CHLORIDE 100 mmol/L (98-107); GLUCOSE 84 mg/dL (65-99); SODIUM 134 mmol/L (136-145); TOTAL PROTEIN 7.1 g/dL (6.4-8.2); eGFR NON BLACK RACES 46 (>60)
[2024-12-27 09:18] VITALS: TEMP 98.5
[2024-12-27] MEDS: GLUCOPHAGE ONE (09:19)
[2024-12-27] MEDS: NS 100 ML IV 100 ML ONE (09:19)
[2024-12-27] MEDS: COLACE CAP 100 MG PO PRN (10:22)
[2024-12-27] MEDS: MILK OF MAGNESIA PO PRN (10:22)
[2024-12-27 12:02] VITALS: BP 172/75; PULSE 71; O2SAT 98
== END 2024-12-27 12:50 | disposition home health service (06) | DRG 690 ==
LOC: ICU 19:41 → ER 19:41 → OBSVTOIN 23:05 → ICU 23:28
PROVIDERS: ADMIT Internal Medicine; ATTEND Internal Medicine
DX: R40.4 Transient alteration of awareness; I12.9 Hypertensive chronic kidney disease with stage 1 through stage 4 chronic kidney disease, or unspecified chronic kidney disease; E83.42 Hypomagnesemia; R26.89 Other abnormalities of gait and mobility; E87.1 Hypo-osmolality and hyponatremia; R79.89 Other specified abnormal findings of blood chemistry; R53.1 Weakness; R06.02 Shortness of breath; E78.5 Hyperlipidemia, unspecified; R94.31 Abnormal electrocardiogram [ECG] [EKG]; R11.2 Nausea with vomiting, unspecified; E11.65 Type 2 diabetes mellitus with hyperglycemia; N18.9 Chronic kidney disease, unspecified; R79.1 Abnormal coagulation profile; N10 Acute pyelonephritis

== ENCOUNTER 2025-01-19 10:21 | Observation (INO) ==
[2025-01-19] MEDS ORDERED: HumaLOG SC PRN (13:13)
[2025-01-19 13:17] VITALS: BMI 27.1
[2025-01-19] MEDS ORDERED: NovoLIN R (or HumuLIN R) SUBCUT PRN (13:58)
[2025-01-19 14:01] LABS: ALBUMIN 2.6 g/dL (3.4-5.0); CALCIUM 8.3 mg/dL (8.5-10.1); CARBON DIOXIDE 24.2 mmol/L (21-32); COR CA(FOR HYPOALB) 9.4 mg/dL (8.5-10.1); CREATININE 1.61 mg/dL (0.55-1.02); TOTAL PROTEIN 6.4 g/dL (6.4-8.2)
[2025-01-19] MEDS: NEURONTIN CAP 300 MG PO SCH (14:25)
[2025-01-19 14:26] LABS: BASOPHILS # (AUTO) 0.1 X10^3/uL (0.0-0.1); BASOPHILS % (AUTO) 0.9 % (0.2-1.0); EOSINOPHILS # (AUTO) 0.1 x10^3/uL (0.0-0.2); EOSINOPHILS % (AUTO) 1.6 % (0.9-2.9); HEMATOCRIT 21.8 % (36.0-47.0); MEAN CORPUSCULAR HEMOGLOBIN 32.3 pg (27.0-34.0); MEAN CORPUSCULAR VOLUME 92.4 fL (80.0-100.0); MEAN PLATELET VOLUME 7.9 fL (7.4-11.0); MONOCYTES # (AUTO) 0.9 x10^3/uL (0.3-0.8); MONOCYTES % (AUTO) 11.7 % (0.0-13.0); NEUTROPHILS # (AUTO) 5.9 x10^3/uL (2.2-4.8); NEUTROPHILS % (AUTO) 73.8 % (42.0-75.0); PLATELET COUNT 332 X10^3/uL (150.0-450.0); RED BLOOD COUNT 2.36 X10^6/uL (3.5-5.4); RED CELL DISTRIBUTION WIDTH 13.3 % (11.6-16.5)
[2025-01-19 14:36] LABS: HEMOGLOBIN 7.6 g/dL (12.0-16.0)
[2025-01-19 15:13] LABS: BILIRUBIN,URINE NEGATIVE (NEGATIVE); BLOOD/HEMOGLOBIN,URINE NEGATIVE (NEGATIVE); GLUCOSE, URINE NEGATIVE (NEGATIVE); KETONES,URINE NEGATIVE (NEGATIVE); LEUKOCYTE ESTERASE ,URINE 1+ (NEGATIVE); NITRITES,URINE NEGATIVE (NEGATIVE); PROTEIN,URINE 1+ (NEGATIVE); UROBILINOGEN,URINE NORMAL (NORMAL)
[2025-01-19 15:18] LABS: APPEARANCE,URINE CLEAR (CLEAR); COLOR,URINE YELLOW (YELLOW)
[2025-01-19 15:30] LABS: BACTERIA,URINE TRACE /HPF (NEGATIVE); RBC,URINE 0-2 /HPF (0-3); SQUAMOUS EPITHELIAL CELL,UR FEW /HPF (NEGATIVE)
[2025-01-19] MEDS: NS 1,000 ML IV 1,000 ML IV SCH (15:50)
[2025-01-19 15:52] LABS: IRON 12 ug/dL (50-175); TOTAL IRON BINDING CAPACITY 216 ug/dL (250-450)
[2025-01-19] MEDS ORDERED: GLUCOPHAGE ONE (21:00)
[2025-01-19] MEDS: MEGACE PO SCH (21:13)
[2025-01-19] MEDS: XALATAN OP SCH (21:13)
[2025-01-19] MEDS: FERROUS GLUCONATE PO SCH (21:15)
[2025-01-19] MEDS: DIOVAN TAB 160 MG PO SCH (21:15)
[2025-01-19] MEDS: GLUCOPHAGE PO SCH (22:21)
[2025-01-20 06:11] LABS: BASOPHILS # (AUTO) 0.1 X10^3/uL (0.0-0.1); BASOPHILS % (AUTO) 0.9 % (0.2-1.0); EOSINOPHILS # (AUTO) 0.4 x10^3/uL (0.0-0.2); EOSINOPHILS % (AUTO) 5.6 % (0.9-2.9); HEMATOCRIT 21.3 % (36.0-47.0); HEMOGLOBIN 7.4 g/dL (12.0-16.0); LYMPHOCYTES # (AUTO) 1.3 X10^3/uL (1.3-2.9); LYMPHOCYTES % (AUTO) 20.1 % (21.0-51.0); MEAN CORPUSCULAR HEMOGLOBIN 32.1 pg (27.0-34.0); MEAN CORPUSCULAR HGB CONC 34.7 g/dL (33.0-35.0); MEAN CORPUSCULAR VOLUME 92.5 fL (80.0-100.0); MEAN PLATELET VOLUME 7.6 fL (7.4-11.0); MONOCYTES # (AUTO) 0.6 x10^3/uL (0.3-0.8); MONOCYTES % (AUTO) 9.7 % (0.0-13.0); NEUTROPHILS # (AUTO) 4.1 x10^3/uL (2.2-4.8); NEUTROPHILS % (AUTO) 63.7 % (42.0-75.0); PLATELET COUNT 331 X10^3/uL (150.0-450.0); RED CELL DISTRIBUTION WIDTH 13.3 % (11.6-16.5); WHITE BLOOD COUNT 6.4 X10^3/uL (3.6-10.0)
[2025-01-20 06:37] LABS: ALBUMIN 2.2 g/dL (3.4-5.0); CALCIUM 8.6 mg/dL (8.5-10.1); CARBON DIOXIDE 25.2 mmol/L (21-32); CREATININE 1.43 mg/dL (0.55-1.02); POTASSIUM 3.9 mmol/L (3.5-5.1); TOTAL PROTEIN 5.9 g/dL (6.4-8.2)
[2025-01-20] MEDS ORDERED: GLUCOPHAGE ONE ×2 (07:14→20:31)
--- NOTE | 2025-01-20 07:42 | RAD ---
EXAM:SHOULDER, LEFTHISTORY:LEFT SHOULDER PAIN/FALL/ HUMERUS FX ;COMPARISON:No relevant prior studies are available for comparison at the time of interpretation.TECHNIQUE:shoulder radiographs, 3 viewsFINDINGS:Impacted and angulated proximal humeral fracture. No dislocationAcromioclavicular joint appears normally alligned with degenerative changes including joint space loss and osteophytes.Glenohumeral joint appears normally alligned with no significant degenerative change and no dislocation.Humeroacromial interval appears widened, suggesting laxity.Visualized soft tissues and partially imaged intrathoracic contents are unremarkable.IMPRESSION:1. Proximal humeral shaft fractureTHIS IS AN ELECTRONICALLY VERIFIED FINAL REPORT01/20/2025 7:39 AM - Electronically signed by Samm Douglas MD
[2025-01-20] MEDS: VITAMIN D3 125 mcg (5,000 UNITS) PO SCH (08:41)
--- NOTE | 2025-01-20 10:02 | DR.H&P ---
H&P History & Physical for Day of: H&P Date: 01/20/25 Chief Complaint Chief Complaint: weakness, fall History of Present Illness History of Present Illness: Ms Sierra is a 79y/o female with a PMH of Type 2 DM, HTN, HLD, CVA, Anemia, Arthritis presented after having a fall at home. She came to the ER on 01/16/25 and was noted to have left humerus fracture. Ortho was contacted and recommended outpatient follow up and pain control. Patient went home but was not able to care for herself so was directly admitted for rehab placement. She reports feeling better today. She is not able to move or lift her left arm. She currently has a splint in place. Dr Howard with Ortho has been consulted and will review most recent XR. Her hgb is 7.4. Denies any active bleeding. Denies having blood transfusions before. Labs/imaging reviewed: -WBC 6.4 Hgb 7.4 Plt 331 K 3.9 BUN/Cr 43/1.43 Iron low TIBC low -UA neg -Shoulder XR reviewed Plan: continue pain control, follow Ortho recommendations. Resume home medications. Will transfuse 2 units PRBCs, monitor H&H. PT as tolerated. Replace electrolytes as per protocol. Monitor AM labs/imaging. Past Medical History Past Medical History: Arthritis, CVA, Dementia, Diabetes, Dyslipidemia and Hypertension Additional Medical History: Cataracts, Glaucoma, Vision Deficit with Corrective Lenses, Conduction disorder of heart, heart murmur, sleep apnea, diarrhea, chronic back pain Past Surgical History Surgical History: Ortho Surgery Additional Surgical History: 2 Foot surgeries, Breast Reduction Family History Family Medical History: Diabetes Mellitus and Hypertension Social History Does any household member use tobacco: No Alcohol Use: None Drug Use: None Medications Home Medications: Home Medications Medication Instructions Recorded Confirmed Type latanoprost 0.005 % eye drops 1 drp ophthalmic (eye) QPM 08/16/23 01/19/25 History atorvastatin 20 mg tablet 20 mg PO QPM 10/04/23 01/19/25 History cholecalciferol (vitamin D3) 125 250 mcg PO QDAY 10/04/23 01/19/25 History mcg (5,000 unit) tablet (Vitamin D3) ferrous sulfate 324 mg (65 mg 324 mg PO BID 10/04/23 01/19/25 History iron) tablet,delayed release gabapentin 300 mg capsule 300 mg PO TID 10/04/23 01/19/25 History metformin 500 mg tablet 500 mg PO BID 10/04/23 01/19/25 History valsartan 320 mg tablet 160 mg PO BID 12/25/24 01/19/25 History cetirizine 10 mg tablet 10 mg PO QPM 01/19/25 01/19/25 History megestrol 40 mg tablet 40 mg PO BID 01/19/25 01/19/25 History Allergies Allergies Allergy/AdvReac Type Severity Reaction Status Date / Time No Known Allergies Allergy Verified 01/17/25 12:45 Labs 01/20/25 05:54 01/20/25 05:54 Labs: Laboratory WBC 6.4 X10^3/uL (3.6-10.0) 01/20/25 05:54 RBC 2.30 X10^6/uL (3.5-5.4) L 01/20/25 05:54 Hgb 7.4 g/dL (12.0-16.0) L 01/20/25 05:54 Hct 21.3 % (36.0-47.0) L 01/20/25 05:54 MCV 92.5 fL (80.0-100.0) 01/20/25 05:54 MCH 32.1 pg (27.0-34.0) 01/20/25 05:54 MCHC 34.7 g/dL (33.0-35.0) 01/20/25 05:54 RDW 13.3 % (11.6-16.5) 01/20/25 05:54 Plt Count 331 X10^3/uL (150.0-450.0) 01/20/25 05:54 MPV 7.6 fL (7.4-11.0) 01/20/25 05:54 Neut % (Auto) 63.7 % (42.0-75.0) 01/20/25 05:54 Lymph % (Auto) 20.1 % (21.0-51.0) L 01/20/25 05:54 [place] % (Auto) 9.7 % (0.0-13.0) 01/20/25 05:54 Eos % (Auto) 5.6 % (0.9-2.9) H 01/20/25 05:54 Baso % (Auto) 0.9 % (0.2-1.0) 01/20/25 05:54 Neut # (Auto) 4.1 x10^3/uL (2.2-4.8) 01/20/25 05:54 Lymph # (Auto) 1.3 X10^3/uL (1.3-2.9) 01/20/25 05:54 [place] # (Auto) 0.6 x10^3/uL (0.3-0.8) 01/20/25 05:54 Eos # (Auto) 0.4 x10^3/uL (0.0-0.2) H 01/20/25 05:54 Baso # (Auto) 0.1 X10^3/uL (0.0-0.1) 01/20/25 05:54 Absolute Nucleated RBC 0.0 /100WBC 01/20/25 05:54 Sodium 138 mmol/L (136-145) 01/20/25 05:54 Corrected Sodium 139 mmol/L (136-145) 01/20/25 05:54 Potassium 3.9 mmol/L (3.5-5.1) 01/20/25 05:54 Chloride 103 mmol/L (98-107) 01/20/25 05:54 Carbon Dioxide 25.2 mmol/L (21-32) 01/20/25 05:54 BUN 43 mg/dL (7-18) H 01/20/25 05:54 Creatinine 1.43 mg/dL (0.55-1.02) H 01/20/25 05:54 Est GFR (MDRD) Af Amer 46 (>60) L 01/20/25 05:54 Est GFR (MDRD) Non-Af 38 (>60) L 01/20/25 05:54 Glucose 122 mg/dL (65-99) H 01/20/25 05:54 POC Glucose (mg/dL) 108 mg/dL (65-99) H 01/20/25 05:21 Calcium 8.6 mg/dL (8.5-10.1) 01/20/25 05:54 Corrected Calcium 10.0 mg/dL (8.5-10.1) 01/20/25 05:54 Iron 12 ug/dL (50-175) L 01/19/25 14:06 TIBC 216 ug/dL (250-450) L 01/19/25 14:06 Ferritin 176 ng/mL (8-252) 01/19/25 14:06 Total Bilirubin 0.30 mg/dL (0.2-1.0) 01/20/25 05:54 AST 14 Units/L (15-37) L 01/20/25 05:54 ALT 14 Units/L (12-78) 01/20/25 05:54 Alkaline Phosphatase 51 Units/L (46-116) 01/20/25 05:54 Total Protein 5.9 g/dL (6.4-8.2) L 01/20/25 05:54 Albumin 2.2 g/dL (3.4-5.0) L 01/20/25 05:54 Globulin 3.7 g/dL (2.5-4.5) 01/20/25 05:54 Albumin/Globulin Ratio 0.6 Ratio (1.1-2.1) L 01/20/25 05:54 Vitamin B12 428 pg/mL (193-986) 01/19/25 14:06 Specimen Type Clean catch urine 01/19/25 14:30 Urine Color Yellow (YELLOW) 01/19/25 14:30 Urine Appearance Clear (CLEAR) 01/19/25 14:30 Urine pH 5.0 (5.0 - 8.0) 01/19/25 14:30 Ur Specific [place] 1.015 (1.000-1.030) 01/19/25 14:30 Urine Protein 1+ (NEGATIVE) 01/19/25 14:30 Urine Glucose (UA) Negative (NEGATIVE) 01/19/25 14:30 Urine Ketones Negative (NEGATIVE) 01/19/25 14:30 Urine Blood Negative (NEGATIVE) 01/19/25 14:30 Urine Nitrite Negative (NEGATIVE) 01/19/25 14:30 Urine Bilirubin Negative (NEGATIVE) 01/19/25 14:30 Urine Urobilinogen Normal (NORMAL) 01/19/25 14:30 Ur Leukocyte Esterase 1+ (NEGATIVE) 01/19/25 14:30 Urine RBC 0-2 /HPF (0-3) 01/19/25 14:30 Urine WBC 3-5 /HPF (0-5) 01/19/25 14:30 Ur Squamous Epith Cells Few /HPF (NEGATIVE) 01/19/25 14:30 Urine Bacteria Trace /HPF (NEGATIVE) 01/19/25 14:30 Ur Culture Indicated? No/not indicated 01/19/25 14:30 Review of Systems Constitutional: Weakness Eyes: No Symptoms Reported ENT: No Symptoms Reported Respiratory: No Symptoms Reported Cardiovascular: No Symptoms Reported Gastrointestinal: No Symptoms Reported Genitourinary: No Symptoms Reported Musculoskeletal: Arm Pain Skin: No Symptoms Reported Neurological: No Symptoms Reported Physical Exam Vital Signs: Vital Signs Temperature 97.7 F Temperature 99.3 F Pulse Rate [Right Radial] 75 Pulse Rate [Right Radial] 70 Respiratory Rate 18 Respiratory Rate 20 Blood Pressure [Right Arm] 121/53 Blood Pressure [Right Arm] 125/60 O2 Sat by Pulse Oximetry 96 O2 Sat by Pulse Oximetry 98 Oriented: Normal Eyes: Normal Nose: Normal Respiratory: Clear Throughout Cardiovascular: Normal Auscultation: Bowel Sounds: Normal Palpation: Normal Tenderness: Normal Skin: Normal Musculoskeletal: Left, Arm and Motor Deficit Psychiatric: Normal Mood Description: Calm Affect: Normal Speech Pattern: Clear and Appropriate Assessment/Plan (1) Closed fracture of left proximal humerus: Qualifiers: Encounter type: initial encounter Fracture morphology: unspecified fracture morphology Qualified Code(s): S42.202A - Unspecified fracture of upper end of left humerus, initial encounter for closed fracture Status: Acute (2) Anemia: Qualifiers: Anemia type: iron deficiency Iron deficiency anemia type: inadequate dietary iron intake Qualified Code(s): D50.8 - Other iron deficiency anemias Status: Acute (3) Fall: Qualifiers: Encounter type: sequela Qualified Code(s): W19.XXXS - Unspecified fall, sequela Status: Acute (4) Generalized weakness: Status: Acute (5) Frequent falls: Status: Chronic (6) GERD (gastroesophageal reflux disease): Qualifiers: Esophagitis presence: esophagitis presence not specified Qualified Code(s): K21.9 - Gastro-esophageal reflux disease without esophagitis Status: Chronic (7) CKD (chronic kidney disease): Qualifiers: Chronic kidney disease stage: unspecified stage Qualified Code(s): N18.9 - Chronic kidney disease, unspecified Status: Chronic Review H&P Reviewed: Yes Patient was examined?: Yes
[2025-01-20] MEDS: NS 250 ML IV 250 ML IV ONE (15:39)
--- NOTE | 2025-01-20 17:09 | DR.CONSULT ---
CONSULT Consultation for Day of: Date: 01/20/25 Chief Complaint Chief Complaint: Left Shoulder pain Allergies Allergies Allergy/AdvReac Type Severity Reaction Status Date / Time No Known Allergies Allergy Verified 01/17/25 12:45 History of Present Illness History of Present Illness: Morenita is a 79 y/o F admitted to [facility] with the chief complaint of Left Shoulder pain. She sustained a mechanical fall earlier in the day with increased pain in the Left shoulder. She was transported to [facility] ER where xrays demonstrated a Left proximal humerus fracture. She was placed into a long arm splint and I was contacted for a transfer to [place] for further management. After discussion I recommended not proceeding with the transfer and a follow up outpatient with sling immobilization. She was subsequently admitted to the hospital for pain control and possible rehab placement. Therefore Orthopedics was consulted for further assessment. Past Medical History Past Medical History: Arthritis, CVA, Dementia, Diabetes, Dyslipidemia and Hypertension Additional Medical History: Cataracts, Glaucoma, Vision Deficit with Corrective Lenses, Conduction disorder of heart, heart murmur, sleep apnea, diarrhea, chronic back pain Past Surgical History Surgical History: Ortho Surgery Additional Surgical History: 2 Foot surgeries, Breast Reduction Family History Family Medical History: Diabetes Mellitus and Hypertension Social History Does any household member use tobacco: No Alcohol Use: None Drug Use: None Medications Home Medications: No Known Allergies Allergy (Verified 01/17/25 12:45) CONTINUE taking the following medications cetirizine 10 mg tablet 10 mg PO QPM 01/19/25 [History] megestrol 40 mg tablet 40 mg PO BID 01/19/25 [History] Physical Exam Vital Signs: Vital Signs Temperature 98.9 F Pulse Rate [Right Radial] 65 Respiratory Rate 19 Blood Pressure [Right Arm] 133/60 O2 Sat by Pulse Oximetry 96 Plan (1) Closed fracture of left proximal humerus: Status: Acute Qualifiers: Encounter type: initial encounter Fracture morphology: unspecified fracture morphology Qualified Code(s): S42.202A - Unspecified fracture of upper end of left humerus, initial encounter for closed fracture Narrative Support Text: I independently reviewed all xrays and CT scan of the Left shoulder demonstrating a moderately displaced proximal humerus fracture with short oblique fracture pattern. With this current fracture pattern I recommend conservative treatment. I recommend removal of the splint and a transition to a sling to the E along with NWB. Ice to the left shoulder and pain control per primary team. She may self reduce in the sling. Upon discharge she may follow up with me outpatient for further assessment and repeat xrays in 1-2 weeks. No surgical indications at this time. I spoke to Dr Stewart about the plan. She does not require a transfer for this current issue. (2) Anemia: Status: Acute Qualifiers: Anemia type: iron deficiency Iron deficiency anemia type: inadequate dietary iron intake Qualified Code(s): D50.8 - Other iron deficiency anemias (3) Fall: Status: Acute Qualifiers: Encounter type: sequela Qualified Code(s): W19.XXXS - Unspecified fall, sequela (4) Generalized weakness: Status: Acute (5) Frequent falls: Status: Chronic (6) GERD (gastroesophageal reflux disease): Status: Chronic Qualifiers: Esophagitis presence: esophagitis presence not specified Qualified Code(s): K21.9 - Gastro-esophageal reflux disease without esophagitis (7) CKD (chronic kidney disease): Status: Chronic Qualifiers: Chronic kidney disease stage: unspecified stage Qualified Code(s): N18.9 - Chronic kidney disease, unspecified
[2025-01-20] MEDS ORDERED: NS 250 ML IV 25 ML IV PRN (22:59)
[2025-01-20] MEDS ORDERED: NS 250 ML IV 250 ML IV ONE (23:15)
[2025-01-21 05:35] LABS: BASOPHILS # (AUTO) 0.1 X10^3/uL (0.0-0.1); BASOPHILS % (AUTO) 1.5 % (0.2-1.0); EOSINOPHILS # (AUTO) 0.3 x10^3/uL (0.0-0.2); EOSINOPHILS % (AUTO) 5.3 % (0.9-2.9); HEMATOCRIT 34.1 % (36.0-47.0); LYMPHOCYTES # (AUTO) 1.4 X10^3/uL (1.3-2.9); LYMPHOCYTES % (AUTO) 21.9 % (21.0-51.0); MEAN CORPUSCULAR HEMOGLOBIN 30.7 pg (27.0-34.0); MEAN CORPUSCULAR HGB CONC 34.2 g/dL (33.0-35.0); MEAN CORPUSCULAR VOLUME 89.7 fL (80.0-100.0); MEAN PLATELET VOLUME 7.9 fL (7.4-11.0); MONOCYTES # (AUTO) 0.7 x10^3/uL (0.3-0.8); MONOCYTES % (AUTO) 10.3 % (0.0-13.0); NEUTROPHILS # (AUTO) 3.9 x10^3/uL (2.2-4.8); PLATELET COUNT 341 X10^3/uL (150.0-450.0); RED CELL DISTRIBUTION WIDTH 14.8 % (11.6-16.5); WHITE BLOOD COUNT 6.4 X10^3/uL (3.6-10.0)
[2025-01-21 05:41] LABS: HEMOGLOBIN 11.7 g/dL (12.0-16.0)
[2025-01-21 05:50] LABS: ALANINE AMINOTRANSFERASE 14 Units/L (12-78); ALBUMIN 2.3 g/dL (3.4-5.0); ALKALINE PHOSPHATASE 49 Units/L (46-116); ASPARTATE AMINO TRANSFERASE 15 Units/L (15-37); BLOOD UREA NITROGEN 42 mg/dL (7-18); CALCIUM 8.5 mg/dL (8.5-10.1); CHLORIDE 106 mmol/L (98-107); COR CA(FOR HYPOALB) 9.9 mg/dL (8.5-10.1); CREATININE 1.38 mg/dL (0.55-1.02); GLUCOSE 96 mg/dL (65-99); POTASSIUM 4.2 mmol/L (3.5-5.1); SODIUM 140 mmol/L (136-145); TOTAL PROTEIN 5.9 g/dL (6.4-8.2); eGFR NON BLACK RACES 39 (>60)
[2025-01-21] MEDS ORDERED: GLUCOPHAGE ONE (07:57)
[2025-01-21] MEDS: NS 100 ML IV 100 ML with VENOFER 400 MG IV ONE (08:53)
[2025-01-21] MEDS: NORCO 5/325 MG TAB PO PRN (10:40)
[2025-01-21 13:29] VITALS: BP 186/74; PULSE 73; RESP 18; TEMP 98.1; O2SAT 97
== END 2025-01-21 13:40 ==
LOC: MED/SURG
PROVIDERS: ADMIT Internal Medicine; ATTEND Internal Medicine
DX: S42.355A Nondisplaced comminuted fracture of shaft of humerus, left arm, initial encounter for closed fracture; R26.89 Other abnormalities of gait and mobility; Z86.73 Personal history of transient ischemic attack (TIA), and cerebral infarction without residual deficits; E11.65 Type 2 diabetes mellitus with hyperglycemia; K21.9 Gastro-esophageal reflux disease without esophagitis; N18.9 Chronic kidney disease, unspecified; W18.39XA Other fall on same level, initial encounter; R06.02 Shortness of breath; R29.6 Repeated falls; I12.9 Hypertensive chronic kidney disease with stage 1 through stage 4 chronic kidney disease, or unspecified chronic kidney disease; R53.1 Weakness; E78.5 Hyperlipidemia, unspecified; D50.8 Other iron deficiency anemias